=== PATIENT | male | born 1975 | race Caucasian/White ===

== ENCOUNTER 2017-12-10 13:56 | Emergency (ER) | payer OTHER ==
--- NOTE | 2017-12-10 14:57 | RAD ---
INDICATION: Cough and chest pain. COMPARISON: There are no prior studies available for comparison. TECHNIQUE: Dual-energy PA and lateral views of the chest were obtained. FINDINGS: The heart is within normal limits in size. Mediastinal and hilar contours appear within normal limits. The lungs are clear. No pleural effusion or pneumothorax is seen. IMPRESSION: NO EVIDENCE FOR ACTIVE CARDIOPULMONARY DISEASE.
[2017-12-10] MEDS ORDERED: NS 0.9% 1000 ML* 1,000 ML IV ONE (15:16)
[2017-12-10] MEDS ORDERED: Aspirin Low Dose CHEW TAB* 81 MG PO ONE (15:17)
--- NOTE | 2017-12-10 15:35 | UC ---
Haily Hester Gabriel, scribed for Ana Smith MD on 12/10/17 at 1436 . Cardiac HPI - HPI Summary HPI Summary: This patient is a 42 year old M presenting to [facility] accompanied by his with a chief complaint of CP and SOB starting suddenly this morning. The patient rates the squeezing pain 4/10 in severity, diffuse across chest. Pain described as waxing and waning. Symptoms aggravated by exertion / walking. Symptoms alleviated by rest. Patient reports dizziness, slightly blurred vision , and weakness. Patient reports feels SOB with activity. The sudden pain was not crippling and it did not radiate. Pt states he was in [employer], walking when he felt progressive SOB, fatigue, and dizzy. Pt reports negative stress test 3- 4 years ago in [place]. Pt states [place] to [place] from [place] 11/30-. Pt denies h/o clotting d/o. No cardiac hx. No h/o HTN, HLD, DM. He is a former smoker without a family history of CAD or HTN. Pt's medications reviewed this visit - History of Current Complaint Chief Complaint: UCRespiratory Stated Complaint: DIZZY Time Seen by Provider: 12/10/17 14:31 Hx Obtained From: Patient, Family/Manager Unix Onset/Duration: Sudden Onset, Still Present Timing: Constant Initial Severity: Moderate Current Severity: Mild Pain Intensity: 4 Chest Pain Location: Upper Sternal Character: Tightness Aggravating Factor(s): Exertion Alleviating Factor(s): Rest Associated Signs & Symptoms: Positive: Chest Pain, Vision Changes, Weakness - Allergy/Home Medications Allergies/Adverse Reactions: Allergies Allergy/AdvReac Type Severity Reaction Status Date / Time No Known Allergies Allergy Verified 12/10/17 14:22 Home Medications: Home Medications Ibuprofen [Motrin Ib] 200 mg PO 12/10/17 [History] PMH/Surg Hx/FS Hx/Imm Hx Previously Healthy: Yes Other Neurological History: sciatica - Surgical History Surgical History: Yes Surgery Procedure, Year, and Place: cervical herniated disc surgery - Family History Known Family History: Negative: Cardiac Disease, Hypertension - Social History Lives: With Family Alcohol Use: None Substance Use Type: None Smoking Status (MU): Former Smoker - Immunization History Most Recent Influenza Vaccination: unknown Review of Systems Constitutional: Fatigue, Other - lightheadedness Eyes: Blurred Vision - difficulty focusing vision ENT: Negative Cardiovascular: Chest Pain Gastrointestinal: Negative Genitourinary: Negative Motor: Negative Neurovascular: Negative Musculoskeletal: Negative Neurological: Weakness, Other - dizziness Psychological: Negative Is Patient Immunocompromised?: No All Other Systems Reviewed And Are Negative: Yes Physical Exam Triage Information Reviewed: Yes Appearance: No Pain Distress, Other: - tired appearing, pale Vital Signs: Initial Vital Signs Temp 98.2 F 12/10/17 14:10 Pulse 74 12/10/17 14:10 Resp 18 12/10/17 14:10 BP 152/84 12/10/17 14:10 Pulse Ox 100 12/10/17 14:10 Vital Signs Reviewed: Yes Eye Exam: Normal Eyes: Positive: Conjunctiva Clear ENT Exam: Normal ENT: Positive: Hearing grossly normal, Pharynx normal Dental Exam: Normal Neck exam: Normal Neck: Positive: Supple, Nontender, No Lymphadenopathy Respiratory Exam: Normal Respiratory: Positive: Chest non-tender, Lungs clear, Normal breath sounds, No respiratory distress, No accessory muscle use, Other: - not reproducibe Cardiovascular Exam: Normal Cardiovascular: Positive: RRR, No Murmur, Pulses Normal Abdominal Exam: Normal Abdomen Description: Positive: Nontender, No Organomegaly, Soft Bowel Sounds: Positive: Present Musculoskeletal Exam: Normal Musculoskeletal: Positive: Strength Intact Neurological Exam: Normal Neurological: Positive: Alert Psychological Exam: Normal Psychological: Positive: Normal Response To Family Skin Exam: Normal Diagnostics - Radiology CXR Radiology Interpretation Completed By: Radiologist - NO EVIDENCE FOR ACTIVE CARDIOPULMONARY DISEASE. ED physician has reviewed this radiology report. - EKG Cardiac Rate: NL Cardiac Rhythm: Sinus: Normal - 76 BPM, Other Rhythm: Normal - no acute ST/T wave changes - Assessment/Plan Course Of Treatment: Pt with chest discomfort, fatigue, dizziness, shortness of breath with activity since this am. Pt with stable VSS. pt with pallor on exam. Pt with recent intracontinental flight -. differential includes PE, CAD , influenza. pt in agreement with transfer to [facility] ED. ASA given. IV place. IVF. transfer - Clinical Impression Provider Diagnoses: cp, sob - Physician Notifications Discussed Patient Care With: Dr. German Time Discussed With Above Provider: 15:25 Discharge - Discharge Plan Condition: Stable Disposition: [facility] Referrals: Minesh Muniz MD [Primary Care Provider] - The documentation as recorded by the Haily ellis Gabriel accurately reflects the service I personally performed and the decisions made by me, Ana Smith MD.
[2017-12-10 16:35] VITALS: BP 134/81
== END 2017-12-10 15:46 | disposition short-term general hospital (02) ==
LOC: UCEAST 13:56
DX: R07.89 Other chest pain (principal); R06.02 Shortness of breath; R42 Dizziness and giddiness; H53.8 Other visual disturbances; R53.1 Weakness; Z87.891 Personal history of nicotine dependence
CPT/HCPCS: 71046; 93005; 96360; 99203; A9270-GY; G0463

== ENCOUNTER 2017-12-10 16:03 | Emergency (ER) | payer OTHER ==
[2017-12-10 16:45] LABS: ABS Basophils 0.1 10^3/ul (0-0.2); ABS Eosinophils 0.2 10^3/ul (0-0.6); ABS Lymphocytes 1.5 10^3/ul (1.0-4.8); ABS Monocytes 0.7 10^3/ul (0-0.8); ABS Neutrophils 5.8 10^3/ul (1.5-7.7); ABS Nucleated RBC 0 10^3/ul; Eosinophil % 2.4 % (0-6); Hematocrit 43 % (42-52); Hemoglobin 14.8 g/dl (14.0-18.0); Lymphocyte % 18.5 % (25-47); Mean Corpuscular HGB Conc 34 g/dl (31-36); Mean Corpuscular Hemoglobin 31 pg (27-31); Mean Corpuscular Volume 90 fL (80-94); Mean Platelet Volume 8 um3 (7.4-10.4); Nucleated Red Blood Cells % 0; Platelet Count 240 10^3/ul (150-450); Red Blood Count 4.78 10^6/ul (4.0-5.4); Red Cell Distribution Width 13 % (10.5-15); White Blood Count 8.3 10^3/ul (3.5-10.8)
[2017-12-10 16:51] LABS: INR 0.98 (0.77-1.02)
[2017-12-10 16:58] LABS: EGFR Non-African American 95.3 (>60)
--- NOTE | 2017-12-10 18:23 | RAD ---
INDICATION: Chest pain COMPARISON: None TECHNIQUE: An AP portable view obtained at 1759 hours is submitted. FINDINGS: Bones/Soft Tissues: There are no acute bony findings. Cardiomediastinal: The cardiomediastinal silhouette is normal. Lungs: There are no infiltrates. Pleura: There are no pleural effusions. Other: None IMPRESSION: NO ACTIVE DISEASE.
[2017-12-10 18:57] VITALS: BP 130/75
--- NOTE | 2017-12-20 15:33 | ED ---
Richard Hester Angela, scribed for Cole German MD on 12/10/17 at 1618 . HPI Chest Pain - HPI Summary HPI Summary: This pt is a 42 y/o male presenting to [facility] referred by [facility] c/o constant chest pain and dizziness today. Pt reports that today he felt generalized weakness and fatigue. He notes 10-15 minutes later, everything went back to normal but still had persistent chest pain, which was minimal. He describes his chest pain as diffuse and across his chest. After lunch, pt went to [employer] and his chest pain came back and suddenly felt weak and dizzy. Pt currently feels fatigued but his pain has is very minimal. He currently denies SOB. He denies LE swelling, LE pain, nausea, vomiting. Pt notes he is currently moving and has had increased stress recently. He states he often wakes up with chest pain in the middle of the night, which he feels is muscular, and notes he drinks water with relief. Pt went to Urgent Care today and was advised to come to the ED to rule out PE. He denies any PMHx. No prior cardiac medical history. - History of Current Complaint Hx Obtained From: Patient Onset/Duration: Started Hours Ago, Still Present Timing: Lasting Hours Current Severity: Mild Pain Intensity: 3 Pain Scale Used: 0-10 Numeric Chest Pain Location: Diffuse Chest Pain Radiates: No Aggravating Factor(s): Nothing Alleviating Factor(s): Nothing Associated Signs and Symptoms: Positive: Chest Pain, Weakness - generalized, Dizziness, Other: - POS: fatigue. Negative: Shortness of Breath, Vomiting - Allergy/Home Medications Allergies/Adverse Reactions: Allergies Allergy/AdvReac Type Severity Reaction Status Date / Time No Known Allergies Allergy Verified 12/10/17 14:22 Home Medications: Home Medications NK [No Home Medications Reported] 12/10/17 [History Confirmed 12/10/17] PMH/Surg Hx/FS Hx/Imm Hx Endocrine/Hematology History: Denies: Hx Diabetes, Hx Thyroid Disease Cardiovascular History: Denies: Hx Hypertension, Hx Pacemaker/ICD Respiratory History: Denies: Hx Asthma, Hx Chronic Obstructive Pulmonary Disease (COPD) GI History: Denies: Hx Ulcer Sensory History: Denies: Hx Hearing Aid Psychiatric History: Denies: Hx Panic Disorder - Surgical History Surgery Procedure, Year, and Place: cervical herniated disc surgery Infectious Disease History: No Infectious Disease History: Reports: Traveled Outside the [place] in Last 30 Days - [place] Denies: Hx Clostridium Difficile, Hx Hepatitis, Hx Human Immunodeficiency Virus (HIV), Hx of Known/Suspected MRSA, Hx Shingles, Hx Tuberculosis - Family History Known Family History: Negative: Cardiac Disease, Hypertension - Social History Alcohol Use: None Substance Use Type: Reports: None Smoking Status (MU): Former Smoker Review of Systems Positive: Fatigue. Negative: Fever Positive: Chest Pain Negative: Shortness Of Breath Negative: Vomiting, Nausea Negative: Arthralgia, Myalgia, Edema - in LE Neurological: Other - POS: dizziness Positive: Weakness - generalized All Other Systems Reviewed And Are Negative: Yes Physical Exam - Summary Physical Exam Summary: Appearance: Well-appearing, Well-nourished Skin: Warm Eyes: Normal ENT: Normal Neck: Supple, nontender Respiratory: Clear to auscultation Cardiovascular: Normal Abdomen: Soft, nontender Bowel: Present Musculoskeletal: Normal, Strength/ROM Intact Neurological: Normal, A&Ox3 Psychiatric: Normal Triage Information Reviewed: Yes Vital Signs On Initial Exam: Initial Vitals Temp Pulse Resp BP Pulse Ox 98.5 F 62 17 128/75 99 12/10/17 16:07 12/10/17 16:07 12/10/17 16:07 12/10/17 16:07 12/10/17 16:07 Vital Signs Reviewed: Yes - Norma Coma Scale Coma Scale Total: 15 Diagnostics - Vital Signs Vital Signs Temp Pulse Resp BP Pulse Ox 12/10/17 16:16 100 12/10/17 16:15 61 100 12/10/17 16:07 98.5 F 62 17 128/75 99 - Laboratory Lab Results: Lab Results 12/10/17 12/10/17 12/10/17 Range/Units 16:30 16:30 16:30 WBC 8.3 (3.5-10.8) 10^3/ul RBC 4.78 (4.0-5.4) 10^6/ul Hgb 14.8 (14.0-18.0) g/dl Hct 43 (42-52) % MCV 90 (80-94) fL MCH 31 (27-31) pg MCHC 34 (31-36) g/dl RDW 13 (10.5-15) % Plt Count 240 (150-450) 10^3/ul MPV 8 (7.4-10.4) um3 Neut % (Auto) 69.8 (38-83) % Lymph % (Auto) 18.5 L (25-47) % Marshall % (Auto) 8.7 (1-9) % Eos % (Auto) 2.4 (0-6) % Baso % (Auto) 0.6 (0-2) % Absolute Neuts (auto) 5.8 (1.5-7.7) 10^3/ul Absolute Lymphs (auto) 1.5 (1.0-4.8) 10^3/ul Absolute Monos (auto) 0.7 (0-0.8) 10^3/ul Absolute Eos (auto) 0.2 (0-0.6) 10^3/ul Absolute Basos (auto) 0.1 (0-0.2) 10^3/ul Absolute Nucleated RBC 0 10^3/ul Nucleated RBC % 0 INR (Anticoag Therapy) 0.98 (0.77-1.02) APTT 30.1 (26.0-36.3) seconds D-Dimer, Quantitative < 200 (Less Than 230) ng/mL Sodium 137 (133-145) mmol/L Potassium 3.9 (3.5-5.0) mmol/L Chloride 104 (101-111) mmol/L Carbon Dioxide 30 (22-32) mmol/L Anion Gap 3 (2-11) mmol/L BUN 16 (6-24) mg/dL Creatinine 0.87 (0.67-1.17) mg/dL Est GFR ( Amer) 122.6 (>60) Est GFR (Non-Af Amer) 95.3 (>60) BUN/Creatinine Ratio 18.4 (8-20) Glucose 105 H (70-100) mg/dL Calcium 8.7 (8.6-10.3) mg/dL Total Bilirubin 0.60 (0.2-1.0) mg/dL AST 16 (13-39) U/L ALT 15 (7-52) U/L Alkaline Phosphatase 38 (34-104) U/L Troponin I 0.00 (<0.04) ng/mL Total Protein 6.5 (6.4-8.9) g/dL Albumin 4.1 (3.2-5.2) g/dL Globulin 2.4 (2-4) g/dL Albumin/Globulin Ratio 1.7 (1-3) Result Diagrams: 12/10/17 16:30 12/10/17 16:30 Lab Statement: Any lab studies that have been ordered have been reviewed, and results considered in the medical decision making process. - Radiology Chest XR Xray Interpretation: No Acute Changes - IMPRESSION: No active disease. Dr. German has reviewed this radiology report. 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 lab unremarkable, ekg unremarkable, denies any chest pain or SOB. I have a low clinical suspicion for ACS in this patient given clinical appearance and findings. Pt agrees to and understands dc instructions . - Diagnoses Provider Diagnoses: Chest pain Discharge - Discharge Plan Condition: Improved Disposition: HOME Patient Education Materials: Chest Pain (ED) Forms: *Work Release Referrals: Minesh Muniz MD [Primary Care Provider] - Willy Eisenberg MD [Medical Doctor] - Mj Hyatt MD [Medical Doctor] - Additional Instructions: PLEASE MAKE AN APPOINTMENT FIRST THING IN THE MORNING TO BE SEEN BY A AUTO SUSPENSION AND STEERING MECHANIC WITHIN 1 WEEK PLEASE RETURN IMMEDIATELY TO THE ER IF YOU HAVE ANY WORSENING OR CONCERNING SYMPTOMS PLEASE MAKE AN APPOINTMENT TO BE SEEN BY YOUR PRIMARY CARE DOCTOR WITHIN 1 WEEK The documentation as recorded by the Richard ellis Angela accurately reflects the service I personally performed and the decisions made by me, Cole German MD.
== END 2017-12-10 18:57 | disposition home or self-care (01) ==
LOC: ED 16:03
DX: R07.9 Chest pain, unspecified (principal); R53.1 Weakness; R42 Dizziness and giddiness; R53.83 Other fatigue; Z87.891 Personal history of nicotine dependence
CPT/HCPCS: 36415; 71045; 80053; 84484; 85025; 85379; 85610; 85730; 99283

== ENCOUNTER 2019-05-01 10:31 | Emergency (ER) | payer OTHER ==
--- OUTSIDE RECORDS SUMMARY | 2019-05-01 10:39 | XMS REPORT | Continuity of Care Document ---
:1975 External Reference #:[id number] Author Name Rita Jean Care Team Providers Name Role Phone Minesh Muniz III, MD Primary Care Physician Unavailable Payers Date Identification Numbers Payment Provider Subscriber Policy Number: [id number] [employer] Bret Suarez PayID: [id number] [address] [place] [address] Expires: 2014 Policy Number: [id number] [employer] Bret Suarez Group Number: [id number] [address] Group Name: [place] [address] PayID: [id number] Advance Directives Description No Information Available Problems Active Problems Provider Date Numbness Param Abrams M.D. Onset: 02/09/2015 Lumbar radiculopathy Param Goodson M.D. 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 Unknown smoker Began age 18 Recreational Drug Use Denies Drug Use Smoking Status Reviewed: 02/18/19 Patient is a former Quit 2013; 1/2 ppd. smoker Began age 18 Exercise Type/Frequency Exercises sporadically Allergies, Adverse Reactions, Alerts Description No Known Drug Allergies Medications Active Medications SIG Qnty Indications Ordering Provider Date Naproxen 1 by mouth twice 60tabs M54.16 Param Goodson 04/13/2019 500mg Tablets a day after M.D. meals Tylenol Extra 1-2 tabs by Unknown Strength mouth every 6 500mg Tablets hours as needed History Medications Tramadol HCL 1-2 tablets every 40tabs Nora Dobbs MD 02/18/2019 - 50mg 6 hours as needed 04/13/2019 Tablets Tramadol HCL 1-2 tablets every 40tabs Minesh Dillard 01/19/2019 - 50mg 6 hours as needed Tate Muniz 01/20/2019 Tablets Medrol per directions 1pack M54.5 Minesh Dillard 01/09/2019 - 4mg TBPK Tate Muniz 01/20/2019 Valacyclovir HCL 1 by mouth three 21tabs B02.9 Minesh Dillard 12/18/2018 - 1gm times a day Tate Muniz 01/20/2019 Tablets Doxycycline Hyclate twice a day by 42caps Unknown 10/15/2014 - mouth 02/08/2015 100mg Capsules Hydrocodone-Acetamin 1 by mouth every 15tabs Unknown 10/15/2014 - ophen 4-6 hours prn. 11/03/2014 5-325mg Tablets No Active Unknown 10/06/2014 - Medications 10/19/2014 Albenza 2 tablets po and 4tabs Emma Cotton, 09/22/2014 - 200mg Tablets repeat in 2 weeks N.P. 10/06/2014 No Active Unknown 09/09/2014 - Medications 09/22/2014 Naproxen Unknown - 08/16/2014 Prednisone Unknown - 08/16/2014 Ketoprofen ER Unknown - 200mg 09/08/2014 Caps ER 24HR Ibuprofen as needed (just Unknown - 400mg used during 04/13/2019 Tablets moving) Medications Administered in Office Medication SIG Qnty Indications Ordering Provider Date Depomedrol 80MG Yumiko Minor M.D. 09/16/2014 Injection Immunizations Description No Information Available Vital Signs Date Vital Result Comment 04/13/2019 9:17am Heart Rate 66 /min BP Systolic Standing 110 mmHg BP Diastolic Standing 76 mmHg Body Temperature 97.9 F O2 % BldC Oximetry 97 % 02/18/2019 4:14pm Height 74 inches 6'2" Weight 195.00 lb Heart Rate 88 /min BP Systolic Standing 109 mmHg BP Diastolic Standing 75 mmHg O2 % BldC Oximetry 95 % BMI (Body Mass Index) 25.0 kg/m2 01/20/2019 2:05pm Height 74 inches 6'2" Weight 192.00 lb Heart Rate 77 /min BP Systolic Sitting 114 mmHg BP Diastolic Sitting 79 mmHg O2 % BldC Oximetry 97 % BMI (Body Mass Index) 24.6 kg/m2 01/09/2019 11:15am Height 74 inches 6'2" Weight 192.00 lb Heart Rate 65 /min BP Systolic Sitting 100 mmHg BP Diastolic Sitting 76 mmHg O2 % BldC Oximetry 98 % BMI (Body Mass Index) 24.6 kg/m2 12/18/2018 10:13am Height 74 inches 6'2" Weight 190.00 lb Heart Rate 58 /min BP Systolic Sitting 100 mmHg BP Diastolic Sitting 78 mmHg O2 % BldC Oximetry 98 % BMI (Body Mass Index) 24.4 kg/m2 02/17/2018 9:46am Height 74 inches 6'2" Weight 205.25 lb w/shoes Heart Rate 72 /min BP Systolic 118 mmHg L/Arm Reg Cuff BP Diastolic 74 mmHg L/Arm Reg Cuff BMI (Body Mass Index) 26.3 kg/m2 Ejection Fraction 60-65% Echocardiogram 12/19/2017 12/13/2017 9:45am Weight 200.00 lb Heart Rate 81 /min BP Systolic Sitting 118 mmHg BP Diastolic Sitting 78 mmHg O2 % BldC Oximetry 98 % 12/12/2017 10:09am Height 74 inches 6'2" Weight 202.50 lb with shoes Heart Rate 72 /min BP Systolic Sitting 130 mmHg BP Diastolic Sitting 90 mmHg BMI (Body Mass Index) 26.0 kg/m2 03/04/2015 10:46am Height 74 inches 6'2" Weight 209.00 lb Heart Rate 64 /min BP Systolic Sitting 122 mmHg BP Diastolic Sitting 70 mmHg Respiratory Rate 16 /min BMI (Body Mass Index) 26.8 kg/m2 02/09/2015 11:00am Height 74 inches 6'2" Weight 208.00 lb Heart Rate 60 /min BP Systolic Sitting 128 mmHg BP Diastolic Sitting 76 mmHg Respiratory Rate 16 /min BMI (Body Mass Index) 26.7 kg/m2 11/03/2014 2:35pm Height 74 inches 6'2" Weight 195.00 lb Heart Rate 84 /min BP Systolic Sitting 110 mmHg BP Diastolic Sitting 67 mmHg Respiratory Rate 14 /min Body Temperature 97.7 F BMI (Body Mass Index) 25.0 kg/m2 10/19/2014 1:47pm Height 74 inches 6'2" Weight 194.00 lb Heart Rate 80 /min BP Systolic Sitting 122 mmHg BP Diastolic Sitting 80 mmHg Body Temperature 97.4 F BMI (Body Mass Index) 24.9 kg/m2 10/07/2014 8:51am Height 74 inches 6'2" Weight 190.00 lb Heart Rate 60 /min BMI (Body Mass Index) 24.4 kg/m2 09/16/2014 8:30am Height 74 inches 6'2" Weight 190.00 lb Heart Rate 60 /min BMI (Body Mass Index) 24.4 kg/m2 09/13/2014 2:18pm Height 74 inches 6'2" Weight 195.00 lb Heart Rate 62 /min BP Systolic Sitting 126 mmHg BP Diastolic Sitting 80 mmHg Pain Level 8 bilateral wrist BMI (Body Mass Index) 25.0 kg/m2 09/09/2014 9:31am Weight 192.50 lb Heart Rate 70 /min BP Systolic Sitting 131 mmHg BP Diastolic Sitting 73 mmHg Body Temperature 96.8 F O2 % BldC Oximetry 98 % 08/16/2014 1:34pm Height 74 inches 6'2" Weight 194.00 lb Heart Rate 62 /min BP Systolic Sitting 120 mmHg BP Diastolic Sitting 80 mmHg Pain Level 4 lon wrist & R leg BMI (Body Mass Index) 24.9 kg/m2 07/29/2014 10:03am Height 74 inches 6'2" Weight 187.00 lb Heart Rate 74 /min BP Systolic 136 mmHg BP Diastolic 82 mmHg BMI (Body Mass Index) 24.0 kg/m2 Results Test Date Facility Test Result H/L Range Note Laboratory test 01/09/2019 [facility] C Reactive < 1.00 mg/L N <8.[address] [place] [address] [phone] Erythrocyte Sed Rate 3 mm/Hr N 0-14 Lyme Screen w/ Reflex to WB Positive Abnormal Negative 1 Lyme Western 01/09/2019 [facility] Lyme Disease Negative Negative Blot [address] [place] [address] [phone] Lyme Disease IgG Bands Present p39,p18 kDa Lyme Disease IgM Ab WB Negative Negative Lyme Disease IgM Bands Present No bands detecte <SEE NOTE> kDa 2 Lyme Disease Interpretation See Comment 3 Laboratory test 12/10/2017 [facility] Troponin-I (TnI) 0.00 ng/ mL <0.04 finding [address] [place] [address] [phone] Comp Metabolic 12/10/2017 [facility] Sodium 137 mmol/L N 133- 145 Panel [address] [place] [address] [phone] Potassium 3.9 mmol/L N 3.5-5.0 Chloride 104 mmol/L N 101-111 Co2 Carbon Dioxide 30 mmol/L N 22-32 Anion Gap 3 mmol/L N 2-11 Glucose 105 mg/dL High 70-100 Blood Urea Nitrogen 16 mg/dL N 6-24 Creatinine 0.87 mg/dL N 0.67-1.17 BUN/Creatinine Ratio 18.4 N 8-20 Calcium 8.7 mg/dL N 8.6-10.3 Total Protein 6.5 g/dL N 6.4-8.9 Albumin 4.1 g/dL N 3.2-5.2 Globulin 2.4 g/dL N 2-4 Albumin/Globulin Ratio 1.7 N 1-3 Total Bilirubin 0.60 mg/dL N 0.2-1.0 Alkaline Phosphatase 38 U/L N 34-104 Alt 15 U/L N 7-52 Ast 16 U/L N 13-39 Egfr Non- 95.3 >60 Egfr 122.6 >60 4 Laboratory test 12/10/2017 [facility] Partial 30.1 seconds N 26.0-36.3 finding [address] [facility] [place] [address] PTT [phone] D Dimer Quantitative < 200 ng/mL N Less Than 230 5 Inr/Protime 12/10/2017 [facility] Inr 0.98 N 0.77-1.02 [address] [place] [address] [phone] CBC Auto Diff 12/10/2017 [facility] White Blood 8.3 10^3/uL N 3.5-10.8 [place] [address] [phone] Red Blood Count 4.78 10^6/uL N 4.0-5.4 Hemoglobin 14.8 g/dL N 14.0-18.0 Hematocrit 43 % N 42-52 Mean Corpuscular Volume 90 fL N 80-94 Mean Corpuscular Hemoglobin 31 pg N 27-31 Mean Corpuscular HGB Conc 34 g/dL N 31-36 Red Cell Distribution Width 13 % N 10.5-15 Platelet Count 240 10^3/uL N 150-450 Mean Platelet Volume 8 um3 N 7.4-10.4 Abs Neutrophils 5.8 10^3/uL N 1.5-7.7 Abs Lymphocytes 1.5 10^3/uL N 1.0-4.8 Abs Monocytes 0.7 10^3/uL N 0-0.8 Abs Eosinophils 0.2 10^3/uL N 0-0.6 Abs Basophils 0.1 10^3/uL N 0-0.2 Abs Nucleated RBC 0 10^3/uL Granulocyte % 69.8 % N 38-83 Lymphocyte % 18.5 % Low 25-47 Monocyte % 8.7 % N 1-9 Eosinophil % 2.4 % N 0-6 Basophil % 0.6 % N 0-2 Nucleated Red Blood Cells % 0 CBC Auto Diff 10/08/2014 [facility] White Blood 7.4 10^3/uL N 4.8-10.[address] [place] [address] [phone] Red Blood Count 5.00 10^6/uL N 4.0-5.4 Hemoglobin 16.1 g/dL N 14.0-18.0 Hematocrit 46 % N 42-52 Mean Corpuscular Volume 92 fL N 80-94 Mean Corpuscular Hemoglobin 32 pg High 27-31 Mean Corpuscular HGB Conc 35 g/dL N 31-36 Red Cell Distribution Width 13 % N 10.5-15 Platelet Count 234 10^3/uL N 150-450 Mean Platelet Volume 8 um3 N 7.4-10.4 Abs Neutrophils 4.9 10^3/uL N 1.5-7.7 Abs Lymphocytes 1.8 10^3/uL N 1.0-4.8 Abs Monocytes 0.6 10^3/uL N 0-0.8 Abs Eosinophils 0.1 10^3/uL N 0-0.6 Abs Basophils 0.1 10^3/uL N 0-0.2 Abs Nucleated RBC 0.03 10^3/uL N Granulocyte % 65.8 % N 38-83 Lymphocyte % 24.0 % Low 25-47 Monocyte % 8.0 % N 1-9 Eosinophil % 1.4 % N 0-6 Basophil % 0.8 % N 0-2 Nucleated Red Blood Cells % 0.4 N Laboratory test 10/08/2014 [facility] Erythrocyte Sed 2 mm/Hr N 0-[address] [place] [address] [phone] Lyme Disease Serology Positive N Negative 6 Rheumatoid Factor <15 IU/mL N <15 7 Claritza (Anti-Nuclear AB) Screen Negative N Negative Lyme Western 10/08/2014 [facility] Lyme Disease Negative N Negative Blot [address] [facility] [place] [address] [phone] Lyme Disease IgG Bands Present p18, kDa N Lyme Disease IgM Ab WB Negative N Negative Lyme Disease IgM Bands Present No bands detecte <SEE NOTE> kDa N 8 Lyme Disease Interpretation See Comment N 9 Lipid Profile 09/09/2014 [facility] Triglycerides 109 mg/dL N 10, 11 (Trig/Chol/HDL) [address] [place] [address] [phone] Cholesterol 167 mg/dL N 12 HDL Cholesterol 37.8 mg/dL N 13 LDL Cholesterol 107 mg/dL N 14 Laboratory test finding 09/09/2014 [facility] Glucose 89 mg/dL N 70-[address] [place] [address] [phone] 1 Sent to reference laboratory for confirmatory testing. 2 No bands detected 3 Specific serologic response to B. burgdorferi infection is not detected, but cannot rule out early infection during which low or undetectable antibody levels to B. burgdorferi may be present. If clinically indicated, a new serum specimen should be submitted in 7-14 days. ADDITIONAL INFORMATION Per CDC criteria, the Lyme IgG Immunoblot is interpreted as positive if IgG-class antibodies are detected to >=5 B. burgdorferi proteins, and the Lyme IgM Immunoblot is interpreted as positive if IgM-class antibodies are detected to >=2 B. burgdorferi proteins. Immunoblot patterns not meeting these criteria should not be interpreted as positive. Epitopes from certain B. burgdorferi proteins (e.g., p41) are conserved across other bacteria, which may lead to the detection of IgM- and/or IgG-class antibodies on the Lyme disease immunoblots in patients without Lyme disease. Immunoblot should only be ordered on specimens that are positive or equivocal by a FDA-licensed Lyme disease antibody screening test (e.g., EIA). Results of the Lyme IgM immunoblot should not be considered in patients with >=30 days of symptoms. Test Performed by: [facility] [address] [place] [address] 4 Because ethnic data is not always readily available, this report includes an eGFR for both -Americans and non- Americans. The National Kidney Disease Education Program (NKDEP) does not endorse the use of the MDRD equation for patients that are not between the ages of 18 and 70, are , have extremes of body size, muscle mass, or nutritional status, or are non- or non-. According to the National Kidney Foundation, irrespective of diagnosis, the stage of the disease is based on the level of kidney function: Stage Description GFR(mL/min/1.73 m(2)) 1 Kidney damage with normal or decreased GFR 90 2 Kidney damage with mild decrease in GFR 60-89 3 Moderate decrease in GFR 30-59 4 Severe decrease in GFR 15-29 5 Kidney failure <15 (or dialysis) 5 Please note: The following may produce a false positive D Dimer test: - Rheumatoid factor greater than 60 IU/ml - Plasma hemoglobin greater than 0.05 gm/dl - Bilirubin greater than 50 mg/dl - Lipids greater than 1000 mg/dl - FDP greater than 20 ug/ml 6 Not diagnostic. Supplemental testing ordered by reflex. Test Performed by: [facility] [address] [id number] Rrts: Abhinav Jack M.D. 7 Test Performed by: [facility] [address] [place] [address] Rrts: Abhinav Jack M.D. 8 No bands detected 9 Specific serologic response to B. burgdorferi infection is not detected, but cannot rule out early infection during which low or undetectable antibody levels to B. burgdorferi may be present. If clinically indicated, a new serum specimen should be submitted in 7-14 days. ADDITIONAL INFORMATION CDC criteria require >=5 bands for IgG or >=2 bands for IgM for the Immunoblot to be considered positive. Bands (e.g.,p41) may be detected in patients without Lyme disease, and patterns not meeting the CDC criteria should be interpreted with caution. Immunoblot should be ordered only on specimens that are positive or equivocal by a FDA-licensed Lyme disease antibody screening test (e.g., EIA). Test Performed by: [place] [address] Rrts: Abhinav Jack M.D. 10 PT IS FASTING 11 Desirable <150 Borderline high 150-199 High 200-499 Very High >500 12 Desirable <200 Borderline high 200-239 High >239 13 Low <40 Desirable: 40-60 High: >60 14 Desirable <100 Near Optimal 100-129 Borderline high 130-159 High 160-189 Very High >189 15 PT IS FASTING Procedures Date Code Description Status 01/07/2018 29954 ECHO Stress Test Incl Perf Contiuous ekg Monitoring W/Phys Completed Superv 12/19/2017 65156 ECHO Transthoracic, Real-Time 2D With Doppler And Color Completed Flow 12/19/2017 90156 ECHO Transthoracic, Real-Time 2D With Doppler And Color Completed Flow 12/12/2017 72359 EKG Tracing & Interpretation Completed 09/16/2014 Injection, Carpal Tunnel Completed Encounters Type Date Location Provider Dx Diagnosis Office Visit 02/18/2019 [facility] Hermann Dobbs MD M54.16 Radiculopathy, 4:00p Medicine lumbar region Office Visit 01/20/2019 [facility] Hermann Muniz M54.5 Low back pain 2:00p Krish De León Office Visit 01/09/2019 Cade Muniz M54.5 Low back pain 11:00a Krish De León M54.2 Cervicalgia Office Visit 12/18/2018 10:00a [facility] Hermann Dillard B02.9 Zoster without Krish Muniz M.D. complications [place] Office Visit 02/17/2018 10:00a [place] Mj Og R07.9 Chest pain, Cardiology Maghaydah, unspecified M.D. Office Visit 12/13/2017 9:40a [facility] Internal Minesh Dillard R07.9 Chest pain, Medicine - Cira Muniz. unspecified [place] Office Visit 12/12/2017 10:20a [place] Mj Og R07.9 Chest pain, Cardiology Maghaydah, unspecified M.D. Office Visit 03/04/2015 10:45a [place] Param Og 782.0 Skin Sensation Neurologic Tate Abrams [facility] 955.2 Injury Nerve Ulnar Office Visit 02/09/2015 11:00a [place] Lyle Og 782.0 Skin Sensation Services Of Cade Abrams M.D. 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 Multiple Sites Office Visit 10/07/2014 8:30a Orthopedic Yumiko Minor 955.2 Injury Nerve Services Of [facility] Ulnar C.M.AFabian 354.0 Carpal Tunnel Syndrome Office Visit 09/16/2014 8:15a Orthopedic Yumiko Minor 95Gwen.2 Injury Nerve Services Of C.M.A. [facility] Ulnar 354.0 Carpal Tunnel Syndrome Office Visit 09/13/2014 Neurosurgery Param 722.10 Intervertebral Disc 2:15p Services Of Cade Goodson M.D. 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 Displacement Cervical W/O Myelopathy 354.0 Carpal Tunnel Syndrome 722.10 Intervertebral Disc Displacement Lumbar W/O Myelopathy Office Visit 07/29/2014 9:30a Orthopedic Yumiko Minor, 354.0 Carpal Tunnel Services Of [facility] Syndrome C.M.AFabian Plan of Treatment 04/13/2019 - Param Goodson M.D.M54.16 Radiculopathy, lumbar regionNew Medication:Naproxen 500 mg - 1 by mouth twice a day after mealsFollow up:Refer to Dr. Sanz or Sudhir for LESI L4-5 Right F/U with me after above
[2019-05-01 10:49] VITALS: BP 115/79
[2019-05-01] MEDS ORDERED: DOXYcycline CAP(*) 100 MG PO ONE (11:06)
--- NOTE | 2019-05-01 11:12 | UC ---
Skin Complaint HPI - HPI Summary HPI Summary: Patient is a 43-year-old male who presents to the urgent care with chief complaint of having tick in the left eye. He reports that he was taking a shower today he noticed that he has a tick. He he has been the worse for the last couple days and he doesnt know for how the tick has been there. He thinks is more than 72 hours. He denies any joint point, denies any fever, and there is no rash. He has no other complaints. - History of Current Complaint Chief Complaint: UCSkin Time Seen by Provider: 05/01/19 10:52 Stated Complaint: LT LEG TICK Hx Obtained From: Patient Skin Exposure Onset/Duration: Days Ago Pain Intensity: 0 - Allergy/Home Medications Allergies/Adverse Reactions: Allergies Allergy/AdvReac Type Severity Reaction Status Date / Time No Known Allergies Allergy Verified 05/01/19 10:49 Home Medications: Home Medications Naproxen [Naproxen 250 mg tab] 250 mg PO BID PRN 05/01/19 [History Confirmed ] PMH/Surg Hx/FS Hx/Imm Hx Previously Healthy: Yes - Surgical History Surgical History: Yes Surgery Procedure, Year, and Place: cervical herniated disc surgery; - Family History Known Family History: Positive: Non-Contributory Negative: Cardiac Disease, Hypertension - Social History Alcohol Use: None Substance Use Type: None Smoking Status (MU): Former Smoker - Immunization History Most Recent Influenza Vaccination: unknown Review of Systems All Other Systems Reviewed And Are Negative: Yes Constitutional: Positive: Negative Skin: Positive: Other - tick bite Eyes: Positive: Negative ENT: Positive: Negative Respiratory: Positive: Negative Cardiovascular: Positive: Negative Gastrointestinal: Positive: Negative Genitourinary: Positive: Negative Neurovascular: Positive: Negative Musculoskeletal: Positive: Negative Neurological: Positive: Negative Psychological: Positive: Negative Is Patient Immunocompromised?: No Physical Exam - Summary Physical Exam Summary: VITAL SIGNS: Reviewed. GENERAL: Patient is a well developed and nourished who is sitting comfortable in the stretcher. Patient is not in any acute respiratory distress. HEAD AND FACE: Normocephalic and atraumatic. EYES: PERRLA, EOMI x 2, EARS: Hearing grossly intact. MOUTH: Oropharynx within normal limits. NECK: Supple, trachea is midline, no adenopathy, no JVD, no carotid bruit, no c- spine tenderness, neck with full ROM. CHEST: Symmetric, no tenderness at palpation LUNGS: CTA B/L. No wheezing or crackles. CVS: RRR, S1 and S2 present, no murmurs or gallops appreciated. ABDOMEN: Soft, NT, No distention. Normal BS. EXTREMITIES: FROM in all major joints, no edema, no cyanosis or clubbing. NEURO: Alert and oriented x 3. No acute neurological deficits. Speech is normal and follows commands. SKIN: Tick in the left tight. Not engorged. Triage Information Reviewed: Yes Appearance: Well-Appearing, No Pain Distress, Well-Nourished Vital Signs: Initial Vital Signs Temp 98.1 F 05/01/19 10:43 Pulse 69 05/01/19 10:43 Resp 16 05/01/19 10:43 BP 115/79 05/01/19 10:43 Pulse Ox 100 05/01/19 10:43 Course/Dx - Course Course Of Treatment: The urgent care course the patient has small tick which is not engorged in the left thigh which is easily removed. The patient was given a prophylactic treatment of 200 mg of doxycycline since the patient reports that the tick has been there for more than 72 hours. The patient will follow up with the primary care physician as needed. - Diagnoses Provider Diagnosis: Tick bite Discharge - Sign-Out/Discharge Documenting (check all that apply): Patient Departure All imaging exams completed and their final reports reviewed: No Studies - Discharge Plan Condition: Stable Disposition: HOME Patient Education Materials: Tick Bite (ED) Referrals: Minesh Muniz MD [Primary Care Provider] - Additional Instructions: F/U with PCP as needed - Billing Disposition and Condition Condition: STABLE Disposition: Home
== END 2019-05-01 11:10 | disposition home or self-care (01) ==
LOC: UCEAST 10:31
DX: T63.481A Toxic effect of venom of other arthropod, accidental (unintentional), initial encounter (principal); Y92.9 Unspecified place or not applicable; Z87.891 Personal history of nicotine dependence
CPT/HCPCS: 99212; A9270-GY; G0463